=== PATIENT | male | born 1965 | race African-American/Black ===

== ENCOUNTER 2022-03-26 09:12 | Emergency (ER) | payer MEDICAID ==
[~2022-03-26] VITALS: Ht 175.3 cm; Wt 61.3 kg
[2022-03-26] MEDS ORDERED: LABETALOL HYDR200 MG PO (09:25)
[2022-03-26] MEDS ORDERED: MIRTAZAPINE15 MG PO (09:33)
[2022-03-26] MEDS ORDERED: PRAZOSIN HCL1 M1 PO (09:34)
[2022-03-26] MEDS ORDERED: HYDROCHLOROT25 MG PO (09:34)
[2022-03-26 09:45] LABS: HEMATOCRIT 40.4 % (39.0-50.0); HEMOGLOBIN 13.5 g/dl (14.0-18.0); IMMATURE GRANULOCYTES 0.5 % (0.0-5.0); MEAN CELL VOLUME 103.1 fL CALC (80.0-100.0); MEAN CORPUSCULAR HGB 34.4 pG CALC (26.0-32.0); MEAN CORPUSCULAR HGB CONC 33.4 g/dL CAL (32.0-36.0); NEUT# 2.1 thou/uL (1.82-7.42); RED BLOOD COUNT 3.92 mill/uL (4.70-6.10); RED CELL DISTRI WIDTH 13.1 % (11.5-15.5)
[2022-03-26 09:46] VITALS: BP 145/76
[2022-03-26 09:51] LABS: ALBUMIN 4.1 g/dL (3.2-5.0); ALKALINE PHOSPHATASE 39 u/l (38-126); ANION GAP 9 (6-22 (CALC)); BILIRUBIN, TOTAL 0.6 mg/dL (0.0-1.4); BUN 11 mg/dL (9-20); BUN/CREATININE RATIO 10 (12-20 (CALC)); CARBON DIOXIDE 25 mmol/l (22-30); CHLORIDE 111 mmol/l (95-108); CREATININE 1.1 mg/dL (0.7-1.3); GFR FOR AFR.AMER. > 60 ML/MIN (>=60 (CALC)); GFR OTHER RACES > 60 ML/MIN (>=60 (CALC)); POTASSIUM 4.3 mmol/l (3.5-5.1); SGOT/AST 33 u/l (17-59); SODIUM 141 mmol/l (137-146); TOTAL PROTEIN 6.8 g/dL (6.3-8.2)
[2022-03-26 10:01] VITALS: BP 151/85
[2022-03-26 10:15] VITALS: BP 145/80
[2022-03-26 10:46] VITALS: BP 164/87
[2022-03-26 11:01] VITALS: BP 162/85
[2022-03-26 11:06] VITALS: BP 162/85
== END 2022-03-26 11:19 | disposition home or self-care (01) ==
LOC: ED 09:12
PROVIDERS: Family Medicine
DX: K92.1 Melena (principal)
CPT/HCPCS: Q9967

== ENCOUNTER 2024-05-16 08:43 | Emergency (ER) | payer OTHER ==
[~2024-05-16] VITALS: Ht 175.3 cm; Wt 61.2 kg
[~2024-05-16 08:43] MED LIST: HYDROCHLOROT25 MG PO; LABETALOL HYDR200 MG PO; MIRTAZAPINE15 MG PO; PRAZOSIN HCL1 M1 PO
[2024-05-16 08:53] VITALS: BP 135/90
[2024-05-16 09:00] VITALS: BP 131/90
[2024-05-16 09:16] VITALS: BP 123/75
[2024-05-16 09:30] VITALS: BP 134/85
[2024-05-16] MEDS ORDERED: MEDDOSEPAK PO (10:26)
[2024-05-16] MEDS ORDERED: ZPAK PO (10:26)
[2024-05-16] MEDS ORDERED: BENZONATATE200 MG PO (10:26)
[2024-05-16 10:47] VITALS: BP 134/85
== END 2024-05-16 10:47 | disposition home or self-care (01) ==
LOC: ED 08:43
DX: J20.9 Acute bronchitis, unspecified (principal); I10 Essential (primary) hypertension; F17.200 Nicotine dependence, unspecified, uncomplicated; Z20.822 Contact with and (suspected) exposure to COVID-19